=== PATIENT | female | born 1995 | race American Indian/Alaskan Native ===

== ENCOUNTER → 2017-04-29 | Emergency (ER) | payer BC, OTHER ==
[~2017-04-29] VITALS: Ht 160 cm; Wt 72.6 kg
[~2017-04-29] MED LIST: DAY-TIME COLD-1 EACH PO; GUAIFENESIN AC473 ML PO; TAMIFLU75 MG PO
== END ==
LOC: ED 22:09
DX: J11.1 Influenza due to unidentified influenza virus with other respiratory manifestations (principal); J45.909 Unspecified asthma, uncomplicated; Z88.0 Allergy status to penicillin; Z79.899 Other long term (current) drug therapy
CPT/HCPCS: 99283